=== PATIENT | male | born 1990 | race African-American/Black ===

== ENCOUNTER 2023-08-31 09:33 | Day surgery (SDC) | payer OTHER ==
[~2023-08-31] VITALS: Ht 200.7 cm; Wt 131.5 kg
[2023-08-31] MEDS ORDERED: diphenhydrAMINE 50 MG/ML VIAL ONE (11:20)
[2023-08-31] MEDS ORDERED: fentaNYL citrate 0.05 MG/ML VIAL ONE (11:21)
[2023-08-31] MEDS ORDERED: MIDAZOLAM 5 MG/5 ML VIAL ONE (11:21)
[2023-08-31] MEDS ORDERED: MIDAZOLAM 5 MG/5 ML VIAL IV ONE (13:20)
== END 2023-08-31 12:34 | disposition home or self-care (01) ==
LOC: MOR 09:33 → MMU 09:34 → MOR 12:34
PROVIDERS: ATTEND Internal Medicine Gastroenterology
DX: K21.9 Gastro-esophageal reflux disease without esophagitis (principal); E11.9 Type 2 diabetes mellitus without complications
CPT/HCPCS: 43235; 82948; J2250; J1200; J3010